=== PATIENT | female | born 1960 | race Caucasian/White ===

== ENCOUNTER 2021-09-04 10:37 | Outpatient (RCR) | payer OTHER, SELFPAY ==
[2021-09-04] MEDS: diphenhydrAMINE HCl CAP 25 MG CAPSULE PO (14:34)
[2021-09-04] MEDS: ACETAMINOPHEN 325 MG TABLET 650 MG PO (14:34)
[2021-09-04] MEDS: FAMOTIDINE 20 MG TABLET PO (14:34)
[2021-09-04 14:37] VITALS: BP 118/70; PULSE 90; TEMP 37.1; O2SAT 100
[2021-09-04 15:57] VITALS: BP 111/76; PULSE 92; O2SAT 98
== END 2021-09-04 16:00 ==
LOC: AMCINF 10:37
PROVIDERS: PCP Internal Medicine; Referring Provider Internal Medicine; Visit Provider Internal Medicine Hematology & Oncology
DX: U07.1 COVID-19 (principal); J45.909 Unspecified asthma, uncomplicated
CPT/HCPCS: A9270; M0247; Q0247

== ENCOUNTER 2022-03-14 08:38 | Outpatient (CLI) | payer OTHER, SELFPAY ==
--- NOTE | 2022-03-14 09:04 | ECHO_ITS ---
Patient Info Name: Lisa Shin Age: 62 years : 1960 Gender: Female Ht: 62 in Wt: 129 lbs BSA: 1.61 m2 HR: 85 bpm BP: 112 / 82 mmHg Technical Quality: Fair Exam Date: 03/14/2022 9:21 AM Exam Location: [facility] Patient Status: Outpatient Admit Date: 03/14/2022 Staff Ordering Physician: Brandon Gudino DO [facility] Supervisor: Catrachita Pastor RDCS Attending Provider: Brandon Gudino DO Referring Physician: Shahab CALIX; Exam Type: CA echo doppler color flow Study Info Indications R06.09 - Other forms of dyspnea Complete two-dimensional, color flow and Doppler transthoracic echocardiogram is performed. Summary 1. Complete two-dimensional, color flow and Doppler transthoracic echocardiogram is performed. 2. Left ventricular chamber dimension is normal. 3. Left ventricular systolic function is normal, estimated at 60-65%. 4. The left ventricular diastolic function is grade I diastolic dysfunction. 5. E/e' 11 is mildly elevated. 6. No pulmonary hypertension, estimated pulmonary arterial systolic pressure is 20 mmHg. Left Ventricle E/e' 11 is mildly elevated. Left ventricular chamber dimension is normal. Left ventricular systolic function is normal, estimated at 60-65%. The left ventricular diastolic function is grade I diastolic dysfunction. Right Ventricle Right ventricular systolic function is normal and with normal TAPSE 2.1 cm. Right ventricular chamber dimension is normal. Left Atria Left atrial chamber dimension is normal. Right Atria Right atrial chamber dimension is normal. Aortic Valve The aortic valve is trileaflet. There is no aortic valve stenosis. There is no aortic valve regurgitation. Pulmonic Valve There is no pulmonic regurgitation. Mitral Valve There is no mitral valve stenosis. There is no mitral valve regurgitation. Tricuspid Valve There is no tricuspid valve regurgitation. No pulmonary hypertension, estimated pulmonary arterial systolic pressure is 20 mmHg. Pericardium/Pleural There is no pericardial effusion. Inferior Vena Cava Normal inferior vena cava with >50% collapse upon inspiration consistent with normal right atrial pressure, 5 mmHg. Aorta The aortic root size at the sinus of Valsalva is normal. Left Ventricular Outflow Tract Name Value Normal LVOT 2D LVOT Diameter 2.0 cm LVOT Doppler LVOT Peak Gradient 4 mmHg LVOT Mean Gradient 2 mmHg LVOT VTI 20 cm LVOT VTI/AV VTI Ratio 1.3 LVOT Stroke Volume 61 ml LVOT CO 5.2 l/min LVOT CI 3.3 l/min/m2 Pulmonic Valve Name Value Normal RVOT Doppler RVOT Peak Gradient 2 mmHg PV Doppler
== END 2022-03-14 08:39 | disposition home or self-care (01) ==
PROVIDERS: Visit Provider Internal Medicine Cardiovascular Disease
DX: R06.09 Other forms of dyspnea (principal)
CPT/HCPCS: 93306

== ENCOUNTER 2024-05-20 01:36 | Day surgery (SDC) | payer OTHER, SELFPAY ==
[2024-05-10 14:26] VITALS: BMI 23.3
[2024-05-20 08:25] VITALS: BP 129/77; PULSE 104; RESP 14; TEMP 36.3; O2SAT 94
--- NOTE | 2024-05-20 08:46 | P.PNAN_ITS ---
Anes - Initial Pre Proc Eval Procedure: Operation Date: 05/20/24 09:30 Proposed Procedures p Screening Colonoscopy - Devon Morales MD Date/Time: 05/20/24 08:46 Surgeon: Devon Morales MD Pre Op Diagnosis: neoplasm screening Patient Data Age: 64 Gender: F Height: 1.57 m Weight: 56.4 kg Last Vital Signs Temp 36.3 C L 05/20/24 08:25 Pulse 104 H 05/20/24 08:25 Resp 14 05/20/24 08:25 BP 129/77 05/20/24 08:25 Pulse Ox 94 05/20/24 08:25 O2 Del Method Room Air 05/20/24 08:25 Allergies Allergy/AdvReac Type Severity Reaction Status Date / Time azithromycin [From Zithromax] Allergy Hives Verified 05/20/24 08:24 Home Medications Medication Instructions Recorded Confirmed Type cetirizine 10 mg capsule (Zyrtec) 10 mg PO DAILY PRN Allergy Symptoms 02/25/22 05/10/24 History multivitamin 1 tablet PO DAILY 02/25/22 05/10/24 History albuterol sulfate 90 mcg/actuation 2 puff inhalation Q6H PRN 07/10/23 05/10/24 Rx aerosol inhaler shortness of breath or wheezing #6.7 grams metoprolol succinate 50 mg 50 mg PO DAILY #90 tabs 04/26/24 05/20/24 Rx tablet,extended release 24 hr losartan 100 mg tablet 100 mg PO DAILY #90 tabs 05/17/24 Rx rosuvastatin 10 mg tablet 10 mg PO DAILY #90 tabs 05/17/24 Rx Patient hx anesthesia problems: none Family hx anesthesia problems: none Results Review: All pre-operative results and documents have been reviewed as part of the pre- operative evaluation. [facility] Past Medical History Medical History (Updated 05/19/24 @ 15:34 by Claudio Ryan DO) Anemia Asthma Dyslipidemia GERD (gastroesophageal reflux disease) Hypertension POTS (postural orthostatic tachycardia syndrome) Tobacco abuse Surgical History Surgical History (Updated 05/19/24 @ 15:34 by Claudio Ryan DO) History of facial surgery History of tubal ligation Status post dilation and curettage Family History Family History Father No problems noted. Mother No problems noted. Sibling Breast cancer Stage IV Social History Social History Years smoked: 45 Smoking status: Current every day smoker Tobacco type: cigarettes Alcohol intake: current Alcohol use details: rarely Substance use: never Do You Feel Safe in your Home?: Yes Lack of Transportation: No Lack of Food: Never True Current Housing: I Have Housing Concerned About Future Housing: No Difficulty Paying Gas/Electric Bills: No Difficulty Paying for Meds: No Currently Unemployed: No Education: Associate Degree Difficulty w/ Childcare or Family Care: No Living arrangements: with family Occupation/Education: occupation Gender identity (if verbalized by the patient): Female Spiritual care concerns: No Anes - Eval Final PreProcedure Day of Procedure 05/20/24 08:46 Patient weight: normal Heart: regular rate and rhythm Lungs: clear to auscultation and normal air movement Airway: Mallampati scale class II Neurological: alert and oriented Last oral intake: >/= 8 hours ASA classification: III Emergent: no Anesthetic plan: proceed Anesthesia type and monitoring: general GIVS and standard monitoring Results Review: All pre-operative results and documents have been reviewed as part of the pre- operative evaluation. Informed Consent: The patient's anesthetic plan and its attendant risks and benefits were discussed with the patient/family/POA. Questions were solicited and answers provided to the satisfaction of the patient/family/POA.
[2024-05-20] MEDS: LACTATED RINGERS 1,000 ML 150 ML IV CONT (08:50)
--- NOTE | 2024-05-20 09:42 | PM.HPGS ---
History of Present Illness History of Present Illness Consent: Risks, benefits, and alternatives have been discussed and questions answered. Patient agrees to proceed with procedure. Chief complaint: neoplasm screening Narrative: Lisa Shin is a 64 year old female here for first screening colonoscopy Review of Systems Review of Systems: All systems reviewed & are unremarkable except as noted in HPI and below PMFSH Past Medical History Medical History (Updated 05/19/24 @ 15:34 by Claudio Ryan DO) Anemia Asthma Dyslipidemia GERD (gastroesophageal reflux disease) Hypertension POTS (postural orthostatic tachycardia syndrome) Tobacco abuse Surgical History Surgical History (Updated 05/19/24 @ 15:34 by Claudio Ryan DO) History of facial surgery History of tubal ligation Status post dilation and curettage Family History Family History Father No problems noted. Mother No problems noted. Sibling Breast cancer Stage IV Social History Social History Years smoked: 45 Smoking status: Current every day smoker Tobacco type: cigarettes Alcohol intake: current Alcohol use details: rarely Substance use: never Do You Feel Safe in your Home?: Yes Lack of Transportation: No Lack of Food: Never True Current Housing: I Have Housing Concerned About Future Housing: No Difficulty Paying Gas/Electric Bills: No Difficulty Paying for Meds: No Currently Unemployed: No Education: Associate Degree Difficulty w/ Childcare or Family Care: No Living arrangements: with family Occupation/Education: occupation Gender identity (if verbalized by the patient): Female Spiritual care concerns: No Meds Home Medications and Allergies Home Medications Medication Instructions Recorded Confirmed Type cetirizine 10 mg capsule (Zyrtec) 10 mg PO DAILY PRN Allergy Symptoms 02/25/22 05/20/24 History multivitamin 1 tablet PO DAILY 02/25/22 05/20/24 History albuterol sulfate 90 mcg/actuation 2 puff inhalation Q6H PRN 07/10/23 05/20/24 Rx aerosol inhaler shortness of breath or wheezing #6.7 grams metoprolol succinate 50 mg 50 mg PO DAILY #90 tabs 04/26/24 05/20/24 Rx tablet,extended release 24 hr losartan 100 mg tablet 100 mg PO DAILY #90 tabs 05/17/24 05/20/24 Rx rosuvastatin 10 mg tablet 10 mg PO DAILY #90 tabs 05/17/24 05/20/24 Rx Allergies Allergy/AdvReac Type Severity Reaction Status Date / Time azithromycin [From Zithromax] Allergy Hives Verified 05/20/24 08:24 Vital Signs Vital Signs - 24 hr 05/20/24 08:25 Temperature 97.4 F L Pulse Rate 104 H Respiratory Rate 14 Blood Pressure 129/77 Pulse Oximetry 94 Oxygen Delivery Room Air Exam Const: General: comfortable and no acute distress HENMT: Face/Nose/Sinus: Normal nares present Eyes: General: appearance normal, both eyes and all related structures Neck: Neck: no JVD Resp: Auscultation: clear to auscultation bilaterally Cardio: Rate: regular rate Rhythm: regular rhythm GI: Inspection: non-distended GI Palp: Yes Soft to palpation Skin: General skin exam: normal color Neuro: General: gait normal Speech: normal speech Extrem: General: normal to inspection Psych: Mental Status: mental status grossly normal Assessment and Plan Assessment and plan (1) Screening for colon cancer: Code(s): Z12.11 - Encounter for screening for malignant neoplasm of colon Status: Acute Assessment and Plan: colonoscopy
[2024-05-20 09:56] VITALS: BP 99/69; PULSE 93; RESP 18; O2SAT 99
[2024-05-20 10:06] VITALS: BP 109/72; PULSE 96; RESP 20; O2SAT 97
[2024-05-20 10:16] VITALS: BP 108/69; PULSE 93; RESP 19; O2SAT 98
== END 2024-05-20 10:24 | disposition home or self-care (01) ==
PROVIDERS: PCP Physician Assistant Medical; Visit Provider Internal Medicine Gastroenterology
PROC: 0DJD8ZZ Inspection of Lower Intestinal Tract, Via Natural or Artificial Opening Endoscopic (ICD-10-PCS; CPT 45378; principal; 2024-05-20 09:30)
DX: Z12.11 Encounter for screening for malignant neoplasm of colon (principal); D12.4 Benign neoplasm of descending colon; J45.909 Unspecified asthma, uncomplicated; G90.A Postural orthostatic tachycardia syndrome [POTS]; E78.5 Hyperlipidemia, unspecified; I10 Essential (primary) hypertension; Z79.51 Long term (current) use of inhaled steroids; F17.210 Nicotine dependence, cigarettes, uncomplicated
CPT/HCPCS: 45385; 88305; J2704; J7120